=== PATIENT | male | born 1990 | race Caucasian/White ===

== ENCOUNTER 2016-11-08 14:16 | Emergency (ER) | payer OTHER ==
[~2016-11-08] VITALS: Ht 180.3 cm; Wt 136.1 kg
[2016-11-08 14:28] VITALS: BP 131/79
--- NOTE | 2016-11-08 14:55 | ED DYSPNEA/ASTHMA COMPLAINT ---
History of Present Illness General Chief Complaint: Wheezing/Asthma Stated Complaint: INCREASE IN ASTHMA SYMPTOMS Source: patient Exam Limitations: no limitations Vital Signs & Intake/Output Vital Signs & Intake/Output Vital Signs Date Time Temp Pulse Resp B/P B/P Pulse O2 O2 Flow FiO2 Mean Ox Delivery Rate 11/08 1603 98 Room Air 11/08 1541 97 11/08 1507 98 11/08 1428 98.9 92 20 131/79 96 Room Air ED Intake and Output 11/09 0000 11/08 1200 Intake Total 120 Output Total Balance 120 Intake, Oral 120 Patient 300 lb Weight Allergies Coded Allergies: No Known Allergies (08/27/15) Reconcile Medications Albuterol Sulfate (Ventolin Hfa) 90 MCG HFA.AER.AD 2 PUF INH Q4-6 PRN PRN ASTHMA Benzonatate (Tessalon Perle) 100 MG CAPSULE 1 CAP PO TID PRN COUGH Prednisone 10 MG TABLET 1 TAB PO AD ASTHMA DAY1/DAY2 FOUR TABS DAY3/DAY4 THREE TABS DAY5/DAY6 TWO TABS DAY 7 ONE TAB Triage Note: PT PRESENTS TO ER C/O OF PRODUCTIVE COUGH. PT STATES COUGH STARTED LAST NIGHT. PT STATES HE HAS A HX OF ASTHMA AND FEELS MORE WINDED THAN NORMAL. PT STATES HE USED HIS INHALER WITH LITTLE RELIEF. PT 02 SAT AT TRIAGE 96% ON RA. Triage Nurses Notes Reviewed? yes Onset: Gradual Duration: constant Timing: recent history Severity: moderate HPI: Patient is a 26-year-old male with a past medical history of asthma who is in every day smoker who presents to emergency with a three-day history of cough wheezing and shortness of breath. Patient had chills last evening. Patient has tried multiple episodes of inhaler with minimal relief of symptoms. Denies any fever or chest pain and arm pain jaw pain nausea vomiting hemoptysis leg swelling sore throat. Patient states that he has asthma attacks once a year and feels very similar to previous episodes (BEN PARKER) Past History Travel History Traveled to [place] past 21 day No Medical History Any Pertinent Medical History? see below for history Respiratory: asthma Surgical History Surgical History: non-contributory Psychosocial History What is your primary language Romanian Tobacco Use: Current Daily Use Daily Tobacco Use Amount/Type: => 5 Cigarettes daily ETOH Use: denies use Illicit Drug Use: denies illicit drug use Family History Hx Contributory? No (BEN PARKER) Review of Systems Review of Systems Constitutional: Reports: no symptoms. EENTM: Reports: no symptoms. Respiratory: Reports: see HPI, cough, wheezing. Cardiovascular: Reports: no symptoms. GI: Reports: no symptoms. Genitourinary: Reports: no symptoms. Musculoskeletal: Reports: no symptoms. Skin: Reports: no symptoms. Neurological/Psychological: Reports: no symptoms. Hematologic/Endocrine: Reports: no symptoms. Immunologic/Allergic: Reports: no symptoms. All Other Systems: Reviewed and Negative (BEN PARKER) Physical Exam Physical Exam General Appearance: no apparent distress, alert, comfortable Respiratory: chest non-tender, no respiratory distress, wheezing Comments: Well-developed well-nourished person in no acute distress HEENT: Normal EENT exam Neck: Supple, no lymphadenopathy, normal range of motion without pain or tenderness Back: Nontender, no CVA tenderness. Cardiovascular: Regular rate and rhythms no murmurs rubs or gallops, normal JVP Extremity: No edema, no calf tenderness to palpation, normal and equal pulses. Neuro: Alert oriented x3, motor sensory normal, Skin: No appreciable rash on exposed skin, skin is warm and dry. Psych: Mood and affect is normal, memory and judgment is normal. Core Measures ACS in differential dx? No Severe Sepsis Present: No Septic Shock Present: No (BEN PARKER) Progress Differential Diagnosis: asthma, AMI, bronchitis, costochondritis, CHF, COPD, musculoskeletal pain, pericarditis, pulmonary embolism, pneumonia, pneumothorax, rib fracture, unstable angina Plan of Care: Current Medications Sig/Adelita Start time Last Medication Dose Stop Time Status Admin Albuterol Sulfate 3 ML ONCE ONE 11/08 1500 UNVr (Proventil) 11/08 1501 Ipratropium [place] 2.5 ML ONCE ONE 11/08 1500 UNVr (Atrovent) 11/08 1501 Prednisone 60 MG ONCE ONE 11/08 1500 UNVr 11/08 1501 Patient currently is in no apparent distress no respiratory distress oxygen saturation 98% room air. Patient does have bilateral posterior audible wheezing. Nontoxic appearing afebrile After initial nebulizer patient had improvement of his auscultating tight chest exam in which the wheezing was more apparent in which another nebulizer was administered 11/08/2016 4:07:26 PM after second nebulizer was administered patient had complete resolution of his wheezing. Patient was strongly advised to his continued smoking Upon discharge patient looks well no apparent distress and will comply WITH discharge instructions and had no questions (BEN PARKER) Initial ED EKG: none (BEN PARKER) Departure Departure Disposition: HOME OR SELF CARE Condition: Stable Clinical Impression Primary Impression: Asthma Referrals: PATIENT HAS NO PRIMARY CARE DR (PCP/Family) Additional Instructions: As discussed BEGIN THE prescription of prednisone tomorrow as you receive this medication in the emergency room today for the full course. Begin the prescription Tessalon Perles for cough. please discontinue smoking. If symptoms worsen return to emergency room Prescriptions waiting at [place] pharmacy If no better in 2 days follow-up with primary care doctor BEGIN THE PRESCRIPTION OF VENTOLIN Departure Forms: Customer Survey General Discharge Information Prescriptions: Current Visit Scripts Prednisone 1 TAB PO AD #19 TAB DAY1/DAY2 FOUR TABS DAY3/DAY4 THREE TABS DAY5/DAY6 TWO TABS DAY 7 ONE TAB Benzonatate (Tessalon Perle) 1 CAP PO TID PRN COUGH #21 CAP Albuterol Sulfate (Ventolin Hfa) 2 PUF INH Q4-6 PRN PRN ASTHMA #1 INHAL (BEN PARKER) PA/PARAPROFESSIONAL EDUCATION ASSISTANT Co-Sign Statement Statement: ED Attending supervision documentation- [] I saw and evaluated the patient. I have also reviewed all the pertinent lab results and diagnostic results. I agree with the findings and the plan of care as documented in the PA's/PARAPROFESSIONAL EDUCATION ASSISTANT's documentation. [X] I have reviewed the ED Record and agree with the PA's/PARAPROFESSIONAL EDUCATION ASSISTANT's documentation. [] Additions or exceptions (if any) to the PAs/PARAPROFESSIONAL EDUCATION ASSISTANT's note and plan are summarized below: [] (SAMAN BRIONES,KELSY) Critical Care Note Critical Care Note Critical Care Time: non-applicable (BEN PARKER)
[2016-11-08] MEDS ORDERED: TESSALON PERLE100 M1 PO (14:58)
[2016-11-08] MEDS ORDERED: PREDNISONE10 M2 PO (14:58)
[2016-11-08] MEDS ORDERED: VENTOLIN HFA18 GM INH (14:59)
== END 2016-11-08 16:05 ==
LOC: ERH 14:16
DX: J45.909 Unspecified asthma, uncomplicated (principal); Z72.0 Tobacco use
CPT/HCPCS: 1263